=== PATIENT | female | born 1985 | race Two or more races ===

== ENCOUNTER 2021-04-08 16:18 | Inpatient (IN) | payer MEDICARE, BC, MEDICAID, SELFPAY ==
--- NOTE | 2021-04-08 | ECG_ITS ---
Test Reason : ANTIPSYCHOTIC MED Blood Pressure : / mmHG Vent. Rate : 059 BPM Atrial Rate : 059 BPM P-R Int : 154 ms QRS Dur : 088 ms QT Int : 398 ms P-R-T Axes : 049 072 049 degrees QTc Int : 394 ms Sinus bradycardia Otherwise normal ECG No previous ECGs available Referred By: Hernán Marcelo Electronically Signed By:HERMILO LARSEN
[2021-04-08 16:26] VITALS: BP 137/93; PULSE 85; RESP 17; TEMP 36.7; O2SAT 97; BMI 32.3
--- NOTE | 2021-04-08 16:58 | ED_ITS ---
HPI - Psych General Chief Complaint: Psychiatric Symptoms <Hernán Marcelo MD - Last Filed: 04/08/21 23:24> Stated Complaint: depression, anxiety <Hernán Marcelo MD - Last Filed: 04/08/21 23:24> Time Seen by Provider: 04/08/21 16:54 <Hernán Marcelo MD - Last Filed: 04/08/21 23:24> Source: patient <Hernán Marcelo MD - Last Filed: 04/08/21 23:24> Mode of arrival: ambulatory <Hernán Marcelo MD - Last Filed: 04/08/21 23:24> Limitations: no limitations <Hernán Marcelo MD - Last Filed: 04/08/21 23:24> History of Present Illness HPI Narrative: History of depression anxiety on medications seen psychiatrist therapist feeling overwhelmed last night was at [facility] plan to have partial intake but is not available for next 3 weeks came from work as unable to focus at work and stressed out looking for some help. Patient denied any suicidal ideation feel very anxious and depressed without any event happened at home <Hernán Mareclo MD - Last Filed: 04/08/21 23:24> Related Data Home Medications: Home Medications Medication Instructions Recorded Confirmed aripiprazole 5 mg tablet 5 mg PO DAILY 04/08/21 04/08/21 bupropion HCl 300 mg 24 hr tablet, 300 mg PO DAILY 04/08/21 04/08/21 extended release clonazepam 1 mg tablet 1 mg PO TID 04/08/21 04/08/21 duloxetine 60 mg capsule,delayed 120 mg PO DAILY 04/08/21 04/08/21 release propranolol 10 mg tablet 10 mg PO TID 04/08/21 04/08/21 <Hernán Marcelo MD - Last Filed: 04/08/21 23:24> Allergies/Adverse Reactions: Allergies Allergy/AdvReac Type Severity Reaction Status Date / Time amoxicillin [AMOXICILLIN] Allergy Unknown HIVES Verified 04/08/21 16:26 <Hernán Marcelo MD - Last Filed: 04/08/21 23:24> Review of Systems Review of Systems: Constitutional : No Fever, No Chills ENT/Mouth : No Ear Pain, No Nasal Congestion, No sore throat Eyes: No Eye Pain, No Swelling, No Redness Cardiovascular : No Chest Pain, No SOB Respiratory : No Cough, No Sputum, No Dyspnea Gastrointestinal : No Nausea, No Vomiting, No Diarrhea, No Hematochezia, No Melena Genitourinary : No Dysuria, No Urinary Frequency, No Hematuria Musculoskeletal : No Myalgias Skin : No Skin Lesions, No rash Neuro : No Weakness, No Numbness, No Paresthesias, No Dizziness, No Headache Psych : positive Anxiety, positive Depression, negative SI/HI Heme/Lymph: No Lymphadenopathy Endocrine : No Polyuria, No Polydipsia <Hernán Marcelo MD - Last Filed: 04/08/21 23:24> [facility] Past Medical History Medical History: Medical History Anxiety Depression <Hernán Marcelo MD - Last Filed: 04/08/21 23:24> Surgical History: Surgical History S/P bilateral breast reduction <Hernán Marcelo MD - Last Filed: 04/08/21 23:24> Social History Social History: Social History Advance Directives: No Advance Directives Information Provided: Yes Healthcare Proxy: No Guardian: No Patient : No <Hernán Marcelo MD - Last Filed: 04/08/21 23:24> Physical Exam Vital Signs: Vital Signs: Last Vital Signs Temp 98.0 F 04/08/21 16:26 Pulse 85 04/08/21 16:26 Resp 17 04/08/21 16:26 BP 137/93 H 04/08/21 16:26 Pulse Ox 97 04/08/21 16:26 Body Mass Index 32.3 <Hernán Marcelo MD - Last Filed: 04/08/21 23:24> Vital Signs: Last Vital Signs Temp 98.0 F 04/08/21 16:26 Pulse 85 04/08/21 16:26 Resp 17 04/08/21 16:26 BP 137/93 H 04/08/21 16:26 Pulse Ox 97 04/08/21 16:26 Body Mass Index 32.3 <Suraj Mahmood MD - Last Filed: 04/08/21 22:08> Appearance: Alert. Oriented X3. No acute distress. Eyes: PERRLA, No Nystagmus ENT: Pharynx normal. Oral Mucosa moist Neck: Normal inspection. Neck supple. CVS: Normal heart rate and rhythm. Pulses normal. Respiratory: No respiratory distress. Equal air entry bilateral, no wheezing/rales/rhonchi Abdomen: Soft and nontender. Bowel sounds are present, no mass palpable, no CVA tenderness Skin: Skin warm and dry. Normal skin color. Normal skin turgor. Extremities: No lower extremity edema. No calf tenderness pdych: Depressed mood slightly anxious no hallucination or delusion judgment fair Neuro: Oriented X 3. No motor deficit. No sensory deficit.No cerebellar signs , cranial nerves II-XII intact <Hernán Marcelo MD - Last Filed: 04/08/21 23:24> MDM - Psych MDM Narrative Medical decision making narrative: Patient seen by therapist will admit patient to for depression <Hernán Marcelo MD - Last Filed: 04/08/21 23:24> Lab Data Attestation: I reviewed the patient's lab results. <Hernán Marcelo MD - Last Filed: 04/08/21 23:24> Labs: Lab Results 04/08/21 04/08/21 04/08/21 Range/Units 17:38 17:38 17:38 Urine Color YELLOW Urine Appearance CLEAR Urine pH 6.5 (5.0-8.0) Ur Specific [place] 1.025 (1.005-1.025) Urine Protein TRACE (NEG-TRACE) MG/DL Urine Glucose (UA) NEG (NEG) MG/DL Urine Ketones 5 (NEG) MG/DL Urine Blood NEG (NEG) Urine Nitrite NEG (NEG) Ur Leukocyte Esterase NEG (NEG) Urine Test NEGATIVE (NEGATIVE) Urine Opiates Screen Not Detected (Not Detect) Urine Fentanyl Screen Not Detected (Not Detect) Ur Barbiturates Screen Not Detected (Not Detect) Ur Phencyclidine Scrn Not Detected (Not Detect) Ur Amphetamines Screen Not Detected (Not Detect) U Benzodiazepines Scrn POSITIVE H (Not Detect) Urine Cocaine Screen Not Detected (Not Detect) U Marijuana (THC) Screen POSITIVE H (Not Detect) COVID-19 (NENITA) (Negative) COVID-19 [facility] Com 04/08/21 Range/Units 17:58 Urine Color Urine Appearance Urine pH (5.0-8.0) Ur Specific [place] (1.005-1.025) Urine Protein (NEG-TRACE) MG/DL Urine Glucose (UA) (NEG) MG/DL Urine Ketones (NEG) MG/DL Urine Blood (NEG) Urine Nitrite (NEG) Ur Leukocyte Esterase (NEG) Urine Test (NEGATIVE) Urine Opiates Screen (Not Detect) Urine Fentanyl Screen (Not Detect) Ur Barbiturates Screen (Not Detect) Ur Phencyclidine Scrn (Not Detect) Ur Amphetamines Screen (Not Detect) U Benzodiazepines Scrn (Not Detect) Urine Cocaine Screen (Not Detect) U Marijuana (THC) Screen (Not Detect) COVID-19 (NENITA) Negative (Negative) COVID-19 [employer] See Note <Hernán Marcelo MD - Last Filed: 04/08/21 23:24> Lab Results 04/08/21 04/08/21 04/08/21 Range/Units 17:38 17:38 17:38 Urine Color YELLOW Urine Appearance CLEAR Urine pH 6.5 (5.0-8.0) Ur Specific [place] 1.025 (1.005-1.025) Urine Protein TRACE (NEG-TRACE) MG/DL Urine Glucose (UA) NEG (NEG) MG/DL Urine Ketones 5 (NEG) MG/DL Urine Blood NEG (NEG) Urine Nitrite NEG (NEG) Ur Leukocyte Esterase NEG (NEG) Urine Test NEGATIVE (NEGATIVE) Urine Opiates Screen Not Detected (Not Detect) Urine Fentanyl Screen Not Detected (Not Detect) Ur Barbiturates Screen Not Detected (Not Detect) Ur Phencyclidine Scrn Not Detected (Not Detect) Ur Amphetamines Screen Not Detected (Not Detect) U Benzodiazepines Scrn POSITIVE H (Not Detect) Urine Cocaine Screen Not Detected (Not Detect) U Marijuana (THC) Screen POSITIVE H (Not Detect) COVID-19 (NENITA) (Negative) COVID-19 [employer] 04/08/21 Range/Units 17:58 Urine Color Urine Appearance Urine pH (5.0-8.0) Ur Specific [place] (1.005-1.025) Urine Protein (NEG-TRACE) MG/DL Urine Glucose (UA) (NEG) MG/DL Urine Ketones (NEG) MG/DL Urine Blood (NEG) Urine Nitrite (NEG) Ur Leukocyte Esterase (NEG) Urine Test (NEGATIVE) Urine Opiates Screen (Not Detect) Urine Fentanyl Screen (Not Detect) Ur Barbiturates Screen (Not Detect) Ur Phencyclidine Scrn (Not Detect) Ur Amphetamines Screen (Not Detect) U Benzodiazepines Scrn (Not Detect) Urine Cocaine Screen (Not Detect) U Marijuana (THC) Screen (Not Detect) COVID-19 (NENITA) Negative (Negative) COVID-19 Clin Com See Note <Suraj Mahmood MD - Last Filed: 04/08/21 22:08> Discharge Plan Discharge Clinical Impression: Major depressive disorder, recurrent episode, unspecified Qualifiers: Major depression episode severity: unspecified Qualified Code(s): F33.9 - Major depressive disorder, recurrent, unspecified <Hernán Marcelo MD - Last Filed: 04/08/21 23:24> Patient Disposition: Admitted As Inpatient <Hernán Marcelo MD - Last Filed: 04/08/21 23:24> Interventions: Admission Worksheet (ED) Last Done: 04/08/21 22:47 <Hernán Marcelo MD - Last Filed: 04/08/21 23:24> Discharge Date/Time: 04/08/21 22:48 <Hernán Marcelo MD - Last Filed: 04/08/21 23:24>
--- NOTE | 2021-04-08 17:06 | PC.NURSE ---
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 boss at work pulled her aside and hinted to seek treatment.contracts for safety, denies hallucinations. smokes cigarettes but declines replacement at present.
[2021-04-08 18:00] LABS: Amphetamine Screen Urine Not Detected (Not Detect); Barbiturates, Urine Not Detected (Not Detect); Benzodiazepines Screen Urine POSITIVE (Not Detect); Cannabinoid Screen Urine POSITIVE (Not Detect); Cocaine Screen Urine Not Detected (Not Detect); Fentanyl, urine Not Detected (Not Detect); Opiate Screen Urine Not Detected (Not Detect); Phencyclidine Screen Urine Not Detected (Not Detect)
[2021-04-08 18:03] LABS: Glucose Urine UA NEG (NEG); Leukocyte Esterase Urine NEG (NEG); Nitrite Urine NEG (NEG); PH 6.5 (5.0-8.0); Specific Gravity - Urine 1.025 (1.005-1.025); Urine Blood NEG (NEG); Urine Ketones 5 MG/DL (NEG); Urine Protein TRACE MG/DL (NEG-TRACE)
[2021-04-08 18:12] LABS: UPreg QC Valid YES; Urine Pregnancy NEGATIVE (NEGATIVE)
[2021-04-08 18:17] LABS: Appearance Urine CLEAR; Color Urine YELLOW
[2021-04-08 18:45] LABS: COVID-19 Test Negative (Negative)
[2021-04-09] VITALS (7 sets, daily range): BP systolic 116–133; BP diastolic 67–79; PULSE 65–85; RESP 18; TEMP 36.4–36.6; O2SAT 98
[2021-04-09] MEDS: Propranolol HCL 10 MG TABLET PO ×4 (00:18→20:28)
[2021-04-09] MEDS: clonazePAM 1 MG TABLET PO ×4 (00:18→20:28)
[2021-04-09] MEDS: traZODone HCL 50 MG TABLET PO (00:21)
--- NOTE | 2021-04-09 02:59 | PC.ADMIT ---
this is the first M3 admission for this 35 year old female. legal:CV. DX: MDD, anxiety d/o. patient was referred to unit by the CARE team. nurse to nurse, collateral information obtained prior to admission. patient is a working RN. Patient has a PCP as well as established out patient providers for behavioral health. BAKER + for benzo (pt has current prescription) and marijuana-pt reports daily use. Patient reports that her anxiety is causing difficulties with her ability to function as a nurse. No current si or self harm thoughts but becomes tearful easily when discussing symptoms ; poor appetite, poor functioning at work, increase in isolation. Identifies that she has a good support system but then adds ''I feel so alone'' Presents as hopeless ''I feel like it will never get any better'' no medical issues. oriented to unit. safety tool completed. treatment plan initiated.
[2021-04-09] MEDS: DULoxetine HCl 60 MG CAPSULE.DR 120 MG PO (08:43)
[2021-04-09] MEDS: ARIPiprazole 5 MG TABLET PO (08:44)
[2021-04-09] MEDS: buPROPion HCl XL 300 MG TAB.ER.24H PO (08:44)
[2021-04-09] MEDS: QUEtiapine Fumarate 25 MG TABLET PO ×3 (12:14→20:28)
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
--- NOTE | 2021-04-09 16:15 | MHC.CLN ---
NUTRITION CONSULT PATIENT REPORTED ABOUT 20# WEIGHT LOSS, UNSURE OF TIME FRAME. WEIGHT LOSS DUE TO DECREASED APPETITE AND INTAKE DUE TO ANXIETY. REPORTED THAT HAS GAINED BACK THAT WEIGHT.
--- NOTE | 2021-04-10 07:47 | HO.PSYCHPN ---
Subjective Subjective Date of Service: 04/13/21 Reason For Visit: Depression Subjective Notes: Conditional Voluntary Interim History: Pt reports feeling less depressed, less anxious. Her mother has come to visit her every day and this has been helpful. She reports seroquel helpful with anxiety. She reports improved sleep at times tearful but denies suicidal or homicidal ideation. NO VH/AH. She has been visible in the unit. Medication Compliance: Yes Review of Systems Review of Systems Constitutional : No Fever, No Chills ENT/Mouth : No Ear Pain, No Nasal Congestion, No sore throat Eyes: No Eye Pain, No Swelling, No Redness Cardiovascular : No Chest Pain, No SOB Respiratory : No Cough, No Sputum, No Dyspnea Gastrointestinal : No Nausea, No Vomiting, No Diarrhea, No Hematochezia, No Melena Genitourinary : No Dysuria, No Urinary Frequency, No Hematuria Musculoskeletal : No Myalgias Skin : No Skin Lesions, No rash Neuro : No Weakness, No Numbness, No Paresthesias, No Dizziness, No Headache Psych : positive Anxiety, positive Depression, negative SI/HI Heme/Lymph: No Lymphadenopathy Endocrine : No Polyuria, No Polydipsia Mental Status Exam Mental Status Exam Narrative: dressed in hospital attire. appropriately groomed. no PMA/PMR. cooperative with interview. speech soft, nml rate, amount, latency. decreased prosody. thoughts linear and logical. affect brighter. mood better denies SI/HI/AVH. Diagnostics Vital Signs (24Hr): Vital Signs - 24 hr 04/12/21 08:36 04/12/21 08:44 04/12/21 14:28 Temperature 97.8 F Pulse Rate 72 72 82 Blood Pressure 122/68 122/68 142/68 H Pulse Oximetry 100 04/12/21 16:44 04/12/21 22:25 Temperature 98.1 F Pulse Rate 84 81 Blood Pressure 122/76 132/88 Pulse Oximetry Body Mass Index 32.3 Medications Medications Current Medications Generic Name Dose Route Start Last Admin Trade Name Freq PRN Reason Stop Dose Admin Acetaminophen 650 mg 04/09/21 00:03 Acetaminophen 325 Mg Tablet PO Q6H PRN Headache/Pain Mild Scale (1-3) Al Hydroxide/Mg Hydroxide 30 ml 04/09/21 00:03 Magnesium Hydrox/Alum Hydrox 30 Ml Oral.Susp PO Q6H PRN Heartburn/Nausea Bupropion HCl 300 mg 04/09/21 09:00 04/12/21 08:44 Bupropion Hcl Xl 300 Mg Tab.Er.24h PO 300 mg DAILY NEERU Administration Clonazepam 1 mg 04/09/21 00:03 04/12/21 22:25 Clonazepam 1 Mg Tablet PO 1 mg TID NEERU Administration Duloxetine HCl 120 mg 04/09/21 09:00 04/12/21 08:45 Duloxetine Hcl 60 Mg Capsule.Dr PO 120 mg DAILY NEERU Administration Hydroxyzine HCl 25 mg 04/09/21 00:03 Hydroxyzine Hcl 25 Mg Tablet PO BEDTIME PRN Anxiety Magnesium Hydroxide 30 ml 04/09/21 00:03 Milk Of Magnesia 30 Ml Oral.Susp PO DAILY PRN Constipation Nicotine Polacrilex 2 mg 04/09/21 09:55 Nicotine Polacrilex 2 Mg Gum BUCCAL Q1H PRN Nicotine Cravings Propranolol HCl 10 mg 04/09/21 00:03 04/12/21 22:25 Propranolol Hcl 10 Mg Tablet PO 10 mg TID NEERU Administration Protocol Quetiapine Fumarate 25 mg 04/09/21 13:00 04/12/21 22:25 Quetiapine Fumarate 25 Mg Tablet PO 25 mg QID NEERU Administration Quetiapine Fumarate 50 mg 04/09/21 11:55 Quetiapine Fumarate 50 Mg Tablet PO Q4H PRN anxiety Trazodone HCl 50 mg 04/09/21 00:03 04/09/21 00:21 Trazodone Hcl 50 Mg Tablet PO 50 mg BEDTIME PRN Administration Insomnia Allergies Allergies Allergy/AdvReac Type Severity Reaction Status Date / Time amoxicillin [AMOXICILLIN] Allergy Unknown HIVES Verified 04/08/21 16:26 Assessment & Plan Assessment & Plan (1) Anxiety disorder: Status: Acute Code(s): F41.9 - Anxiety disorder, unspecified (2) Major depressive disorder, recurrent episode, unspecified: Qualifiers: Major depression episode severity: unspecified Qualified Code(s): F33.9 - Major depressive disorder, recurrent, unspecified Status: Acute Code(s): F33.9 - Major depressive disorder, recurrent, unspecified Assessment and Plan: continue klonopin 1 TID, duloxetine 120 daily, propranolol 10 TID, bupropion XL 300 daily. DC abilify 5 mg daily in favor of seroquel 25 QID with 50 PRN. reassess and titrate seroquel tomorrow. Greater than 50% of the session was spent on counseling and/or coordination of care Reason for contiued inpatient stay Substantial Risk for: harm to self
[2021-04-10 09:12] VITALS: BP 115/65; PULSE 81; RESP 16; TEMP 36.6; O2SAT 98
[2021-04-10 09:15] VITALS: BP 115/65; PULSE 81
[2021-04-10] MEDS: buPROPion HCl XL 300 MG TAB.ER.24H PO (09:15)
[2021-04-10] MEDS: clonazePAM 1 MG TABLET PO ×3 (09:15→20:12)
[2021-04-10] MEDS: DULoxetine HCl 60 MG CAPSULE.DR 120 MG PO (09:15)
[2021-04-10] MEDS: QUEtiapine Fumarate 25 MG TABLET PO ×4 (09:15→20:12)
[2021-04-10] MEDS: Propranolol HCL 10 MG TABLET PO ×3 (09:15→20:12)
[2021-04-10 14:34] VITALS: BP 136/65; PULSE 81
[2021-04-10 18:00] VITALS: BP 115/60; PULSE 78; RESP 18; TEMP 36.3; O2SAT 98
[2021-04-10 20:12] VITALS: BP 115/60; PULSE 78
[2021-04-11 09:44] VITALS: BP 131/68; PULSE 80
[2021-04-11] MEDS: Propranolol HCL 10 MG TABLET PO ×3 (09:44→22:19)
[2021-04-11] MEDS: clonazePAM 1 MG TABLET PO ×3 (09:44→22:19)
[2021-04-11] MEDS: buPROPion HCl XL 300 MG TAB.ER.24H PO (09:44)
[2021-04-11] MEDS: DULoxetine HCl 60 MG CAPSULE.DR 120 MG PO (09:45)
[2021-04-11] MEDS: QUEtiapine Fumarate 25 MG TABLET PO ×4 (09:45→22:19)
[2021-04-11 09:53] VITALS: BP 131/68; PULSE 80; RESP 16; TEMP 36.3; O2SAT 98
[2021-04-11 13:42] VITALS: BP 126/67; PULSE 69
[2021-04-11 22:08] VITALS: BP 133/77; PULSE 67; RESP 18; TEMP 36.5; O2SAT 100
[2021-04-12 08:36] VITALS: BP 122/68; PULSE 72; TEMP 36.6; O2SAT 100
[2021-04-12 08:44] VITALS: BP 122/68; PULSE 72
[2021-04-12] MEDS: buPROPion HCl XL 300 MG TAB.ER.24H PO (08:44)
[2021-04-12] MEDS: Propranolol HCL 10 MG TABLET PO ×3 (08:44→22:25)
[2021-04-12] MEDS: clonazePAM 1 MG TABLET PO ×3 (08:44→22:25)
[2021-04-12] MEDS: QUEtiapine Fumarate 25 MG TABLET PO ×4 (08:45→22:25)
[2021-04-12] MEDS: DULoxetine HCl 60 MG CAPSULE.DR 120 MG PO (08:45)
[2021-04-12 14:28] VITALS: BP 142/68; PULSE 82
[2021-04-12 16:44] VITALS: BP 122/76; PULSE 84; TEMP 36.7
[2021-04-12 22:25] VITALS: BP 132/88; PULSE 81
[2021-04-13 08:00] VITALS: BP 129/60; PULSE 70; RESP 16; TEMP 36.2; O2SAT 99
[2021-04-13 08:37] VITALS: BP 129/60; PULSE 70
[2021-04-13] MEDS: QUEtiapine Fumarate 25 MG TABLET PO ×4 (08:37→22:17)
[2021-04-13] MEDS: DULoxetine HCl 60 MG CAPSULE.DR 120 MG PO (08:37)
[2021-04-13] MEDS: Propranolol HCL 10 MG TABLET PO ×3 (08:37→22:14)
[2021-04-13] MEDS: buPROPion HCl XL 300 MG TAB.ER.24H PO (08:38)
[2021-04-13] MEDS: clonazePAM 1 MG TABLET PO ×3 (08:38→22:14)
--- NOTE | 2021-04-13 11:50 | HO.PSYCHPN ---
Subjective Subjective Date of Service: 04/13/21 Reason For Visit: Depression Interim History: pt reports she is feeling well on her current regimen. depression and anxiety are not overwhelming. appears comfortable and relaxed, if somber. educates pt that medication will not be the solution to her problem, but that behavioral therapy is indicated. she was informed to be in touch with [facility] residency program if needed to find someone trained in this skill. she is agreeable to discharge tomorrow. per staff, attended 3/3 groups yesterday. reading, watching TV. bright, pleasant, interactive. 10/14 depression. no SI/HI/AVH. a little bit sad. slept after midnight. Mental Status Exam Mental Status Exam Narrative: dressed in street clothes. appropriately groomed. no PMA/PMR. cooperative with interview. speech soft, nml rate, amount, latency. decreased prosody. thoughts linear and logical. affect brighter. no expressed SI/HI/AVH. Diagnostics Vital Signs (24Hr): Vital Signs - 24 hr 04/12/21 14:28 04/12/21 16:44 04/12/21 22:25 Temperature 98.1 F Pulse Rate 82 84 81 Blood Pressure 142/68 H 122/76 132/88 04/13/21 08:37 Temperature Pulse Rate 70 Blood Pressure 129/60 Body Mass Index 32.3 Medications Medications Current Medications Generic Name Dose Route Start Last Admin Trade Name Freq PRN Reason Stop Dose Admin Acetaminophen 650 mg 04/09/21 00:03 Acetaminophen 325 Mg Tablet PO Q6H PRN Headache/Pain Mild Scale (1-3) Al Hydroxide/Mg Hydroxide 30 ml 04/09/21 00:03 Magnesium Hydrox/Alum Hydrox 30 Ml Oral.Susp PO Q6H PRN Heartburn/Nausea Bupropion HCl 300 mg 04/09/21 09:00 04/13/21 08:38 Bupropion Hcl Xl 300 Mg Tab.Er.24h PO 300 mg DAILY NEERU Administration Clonazepam 1 mg 04/09/21 00:03 04/13/21 08:38 Clonazepam 1 Mg Tablet PO 1 mg TID NEERU Administration Duloxetine HCl 120 mg 04/09/21 09:00 04/13/21 08:37 Duloxetine Hcl 60 Mg Capsule.Dr PO 120 mg DAILY NEERU Administration Hydroxyzine HCl 25 mg 04/09/21 00:03 Hydroxyzine Hcl 25 Mg Tablet PO BEDTIME PRN Anxiety Magnesium Hydroxide 30 ml 04/09/21 00:03 Milk Of Magnesia 30 Ml Oral.Susp PO DAILY PRN Constipation Nicotine Polacrilex 2 mg 04/09/21 09:55 Nicotine Polacrilex 2 Mg Gum BUCCAL Q1H PRN Nicotine Cravings Propranolol HCl 10 mg 04/09/21 00:03 04/13/21 08:37 Propranolol Hcl 10 Mg Tablet PO 10 mg TID NEERU Administration Protocol Quetiapine Fumarate 25 mg 04/09/21 13:00 04/13/21 08:37 Quetiapine Fumarate 25 Mg Tablet PO 25 mg QID NEERU Administration Quetiapine Fumarate 50 mg 04/09/21 11:55 Quetiapine Fumarate 50 Mg Tablet PO Q4H PRN anxiety Trazodone HCl 50 mg 04/09/21 00:03 04/09/21 00:21 Trazodone Hcl 50 Mg Tablet PO 50 mg BEDTIME PRN Administration Insomnia Allergies Allergies Allergy/AdvReac Type Severity Reaction Status Date / Time amoxicillin [AMOXICILLIN] Allergy Unknown HIVES Verified 04/08/21 16:26 Assessment & Plan Assessment & Plan (1) Anxiety disorder: Status: Acute Code(s): F41.9 - Anxiety disorder, unspecified (2) Major depressive disorder, recurrent episode, unspecified: Qualifiers: Major depression episode severity: unspecified Qualified Code(s): F33.9 - Major depressive disorder, recurrent, unspecified Status: Acute Code(s): F33.9 - Major depressive disorder, recurrent, unspecified Assessment and Plan: continue klonopin 1 TID, duloxetine 120 daily, propranolol 10 TID, bupropion XL 300 daily, seroquel 25 QID with 50 PRN. discharge to outpt care tomorrow. Greater than 50% of the session was spent on counseling and/or coordination of care Reason for contiued inpatient stay Substantial Risk for: rapid decompensation
[2021-04-13 14:33] VITALS: BP 144/81; PULSE 95
[2021-04-13 18:00] VITALS: BP 132/83; PULSE 89; TEMP 36.7; O2SAT 96
[2021-04-13 22:14] VITALS: BP 123/76; PULSE 97
[2021-04-14 09:10] VITALS: BP 133/73
[2021-04-14] MEDS: DULoxetine HCl 60 MG CAPSULE.DR 120 MG PO (09:10)
[2021-04-14] MEDS: buPROPion HCl XL 300 MG TAB.ER.24H PO (09:10)
[2021-04-14] MEDS: Propranolol HCL 10 MG TABLET PO (09:10)
[2021-04-14] MEDS: QUEtiapine Fumarate 25 MG TABLET PO (09:11)
[2021-04-14 10:05] VITALS: BP 114/61; PULSE 57
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
== END 2021-04-14 12:53 | disposition home or self-care (01) | DRG 751 ==
LOC: HO.ED 22:05 → HO.PADLT16 22:32
PROVIDERS: Admitting Provider Psychiatry & Neurology Psychiatry; Emergency Provider Internal Medicine; PCP Internal Medicine; Visit Provider Psychiatry & Neurology Psychiatry
DX: F33.9 Major depressive disorder, recurrent, unspecified (principal); F41.9 Anxiety disorder, unspecified; F17.210 Nicotine dependence, cigarettes, uncomplicated; Z71.6 Tobacco abuse counseling; Z20.822 Contact with and (suspected) exposure to COVID-19; Z88.0 Allergy status to penicillin; Z79.899 Other long term (current) drug therapy
CPT/HCPCS: 36415; 80307; 81003; 81025; 87635; 93005; 99285

== ENCOUNTER 2022-09-16 21:32 | Emergency (ER) | payer MEDICARE, MEDICAID, SELFPAY ==
[2022-09-16 22:30] VITALS: BP 171/96; PULSE 87; RESP 20; TEMP 36.5; O2SAT 99; BMI 30.4
[2022-09-17 06:17] VITALS: BP 121/63; PULSE 65; RESP 16; TEMP 36.8; O2SAT 97
--- NOTE | 2022-09-17 06:37 | ECG_ITS ---
Test Reason : ANXIETY Blood Pressure : / mmHG Vent. Rate : 078 BPM Atrial Rate : 078 BPM P-R Int : 160 ms QRS Dur : 088 ms QT Int : 404 ms P-R-T Axes : 063 067 049 degrees QTc Int : 460 ms Normal sinus rhythm Normal ECG When compared with ECG of 08-APR-2021 22:11, QT has lengthened Referred By: Yani Euceda Electronically Signed By:LESLIE DONG MD
[2022-09-17 07:13] LABS: UPreg QC Valid YES; Urine Pregnancy NEGATIVE (NEGATIVE)
[2022-09-17 07:14] LABS: Appearance Urine Cloudy; Color Urine Dark Yellow; Glucose Urine UA Negative (Negative); Leukocyte Esterase Urine Small (1+) (Negative); Nitrite Urine Negative (Negative); PH 5.5 (5.0-9.0); Specific Gravity - Urine >= 1.030 (1.005-1.025); UMIC TRIGGER UACC YES; Urine Blood Negative (Negative); Urine Ketones Negative (Negative); Urine Protein 30 (1+) mg/dL (Neg-Trace)
[2022-09-17 07:47] LABS: Bacteria Urine 4+ (None Seen); Hyaline Casts Urine 0-2 /LPF (0-2); Squamous Epithelial Cell Urine >20 /HPF (0-2); UACC Culture Trigger YES; WBC Urine 0-5 /HPF (0-5)
--- NOTE | 2022-09-17 08:19 | PC.NURSE ---
Patient resting comfortably with mother at bedside anxiety mostly resolved continues to complain of vaginal pain. Used prescribed lidocaine with marginal effect. AOx 4 neuros intact. SAMUEL with purpose no respiratory distress noted. Will CTM
--- NOTE | 2022-09-17 08:23 | ED.GENADULT ---
HPI - General Adult General Chief complaint: Anxiety Stated complaint: Anxiety attack? Time Seen by Provider: 09/17/22 06:37 Source: patient and family (Mother) Mode of arrival: ambulatory History of Present Illness HPI narrative: 37-year-old female who presents with increasing clitoral sensitivity and pain that is throbbing in nature without reported trauma since Monday after she was started on Bactrim for a UTI. Patient is currently on Viibryd for anxiety and denies any recent dosing or frequency changes, she does states that she was informed on Monday that in fact she does not have a urinary tract infection and the Bactrim was stopped and then she was started on Flagyl. Patient states that since 2 days ago the pain has become ?unbearable? preventing her from sleeping at night and she presents here in the emergency room with acute onset of an anxiety attack last night. She has recently been tapered off her benzodiazepine as well. Related Data Home Medications Medication Instructions Recorded Confirmed bupropion HCl 300 mg 24 hr tablet, 300 mg PO DAILY 04/08/21 04/08/21 extended release clonazepam 1 mg tablet 1 mg PO TID 04/08/21 04/08/21 duloxetine 60 mg capsule,delayed 120 mg PO DAILY 04/08/21 04/08/21 release propranolol 10 mg tablet 10 mg PO TID 04/08/21 04/08/21 Previous Rx's Medication Instructions Recorded quetiapine 25 mg tablet 25 mg PO QID 30 days #120 tabs 04/14/21 clotrimazole-betamethasone 1 1 appl topical BID 5 days #15 grams 09/17/22 %-0.05 % topical cream hydroxyzine HCl 10 mg tablet 10 mg PO TID PRN anxiety #10 tabs 09/17/22 terconazole 0.8 % vaginal cream 1 appful vaginal BEDTIME 3 days 09/17/22 #20 grams Allergies Allergy/AdvReac Type Severity Reaction Status Date / Time amoxicillin [AMOXICILLIN] Allergy Unknown HIVES Verified 09/16/22 22:36 Review of Systems Review of Systems: Pertinent positives and negatives as stated in HPI [facility] Past Medical History Source: nursing notes reviewed Medical History Anxiety Depression Surgical History S/P bilateral breast reduction Social History Social History Household Members: Other Housing: Apartment Do you presently have visiting nurse or other home services: No Alcohol intake: current Alcohol intake frequency: holidays/special occasions only Alcohol type: wine Patient Tobacco Use Status: Current everyday Tobacco user Tobacco use type: Cigarette Smoked in Last 30 Days: No e-Cigarette/Vaping Use: Never Used Second Hand Smoke Exposure: Yes Use of substances other than those prescribed or required for medical reasons: Yes Substance Use Type: Marijuana Substance Use Frequency: Weekly Advance Directives: No Advance Directives Information Provided: Yes service: No Sexual orientation: Straight/Heterosexual Physical Exam ED Vital Signs: Vital Signs - 24 hr 09/16/22 22:30 09/17/22 06:17 Temperature 97.7 F 98.3 F Pulse Rate 87 65 Respiratory Rate 20 16 Blood Pressure 171/96 H 121/63 Pulse Oximetry 99 97 Oxygen Delivery Method Room Air Room Air BMI result Body Mass Index 30.4 VITAL SIGNS: Reviewed. GENERAL: Well developed, well nourished, in no acute distress. HEAD: Normocephalic/atraumatic EYES: PERRLA, EOMI LUNGS: Normal breath sounds. No adventitious sounds or accessory muscle use. SpO2<97> CARDIOVASCULAR: Regular rate and rhythm without noted murmurs ABDOMEN: Soft, non-tender, non-distended with bowel sounds. : [Information Systems Security Manager-Caroylnn] normal external genitalia without lesions/vesicles/discharge/erythema, clitoris itself appears to be very red and inflamed without noted lesions, no vaginal discharge noted NEUROLOGIC: Alert and oriented x 4. Medications Administered Discontinued Medications Generic Name Dose Route Start Last Admin Trade Name [place] PRN Reason Stop Dose Admin Lidocaine HCl 10 ml 09/17/22 08:52 09/17/22 09:04 Lidocaine Hcl 2 % Urojet 10 Ml Jel.Pf.Lisha TOPICAL 09/17/22 08:53 10 ml ONCE ONE Administration Medical Decision Making Medical Decision Making MDM Narrative: 37-year-old female with significant clinical pain, I extensively researched interactions between Bactrim/Flagyl and her maintenance medication of Viibryd and there does not seem to be a significant interaction that would lead to uncharacteristic increase amounts of Viibryd which in theory could lead to sexual dysfunction such as this. I reviewed all investigations. I discussed our car sales consultant's recommendations with the patient at bedside after she had been provided with 2% lidocaine and she does report that she has had some improvement with her symptoms. In addition, patient will be discharged with a prescription for hydroxyzine for initial step and feelings of anxiety. She is otherwise discharged home in stable condition. Differential Diagnosis Differential Diagnoses: The differential diagnosis associated with the presentation includes Please see the discussion above Consult Healthcare Provider Management of the patient was discussed with: Credit Cashier [id number]: I discussed the case with Gynecology, Dr. Ananya Darden, who recommends Terazol 0.8% Q HS for 3 days and then Lotrisone b.i.d. for 5 days external use to clitoral area. Lab Data MDM Lab Attestation statement: I reviewed the patient's lab results. Please see the discussion above Labs: Lab Results 09/17/22 09/17/22 Range/Units 06:57 06:57 Urine Color Dark Yellow Urine Appearance Cloudy Urine pH 5.5 (5.0-9.0) Ur Specific [place] >= 1.030 H (1.005-1.025) Urine Protein 30 (1+) H (Neg-Trace) mg/dL Urine Glucose (UA) Negative (Negative) mg/dL Urine Ketones Negative (Negative) mg/dL Urine Blood Negative (Negative) Urine Nitrite Negative (Negative) Ur Leukocyte Esterase Small (1+) H (Negative) Urine RBC 3-5 H (0-2) /HPF Urine WBC 0-5 (0-5) /HPF Ur Squamous Epith Cells >20 (0-2) /HPF Urine Bacteria 4+ (None Seen) Hyaline Casts 0-2 (0-2) /LPF Urine Test NEGATIVE (NEGATIVE) Independent Interpretation I performed an independent interpretation of an: EKG Interpretation: Normal sinus rhythm, HR-78, no STEMI, CA/QRS/QTC is within normal limits. Critical Care Time Critical Care Time Critical Care Time: Yes Total Critical Care Time: 30 Attestation: I personally attest to this time spent taking care of the patient. Discharge Plan Discharge Clinical Impression: Acute anxiety, Clitoral irritation Patient Disposition: Home, Self-Care Instructions: Anxiety (ED) Additional Instructions: 1. Resume all home medications as prescribed. 2. Please take the 2 new prescriptions as recommended. 3. Please follow-up with your candy cooker helper on Monday morning. Return to the ER for any worsening symptoms. Prescriptions: New terconazole 0.8 % cream 1 appful vaginal BEDTIME 3 Days Qty: 20 0RF clotrimazole-betamethasone 1-0.05 % cream 1 appl topical BID 5 Days Qty: 15 0RF Rx Instructions: Apply to clitoral area hydroxyzine HCl 10 mg tablet 10 mg PO TID PRN (Reason: anxiety) Qty: 10 0RF No Action clonazepam 1 mg tablet 1 mg PO TID propranolol 10 mg tablet 10 mg PO TID bupropion HCl 300 mg tablet extended release 24 hr 300 mg PO DAILY duloxetine 60 mg capsule,delayed release(DR/EC) 120 mg PO DAILY quetiapine 25 mg Tablet 25 mg PO QID 30 Days Qty: 120 0RF Referrals: Elvis Lopez [Primary Care Provider] -
[2022-09-17] MEDS: Lidocaine HCl 2 % Urojet 10 ML JEL.PF.APP TOPICAL (09:04)
--- NOTE | 2022-09-17 10:57 | PM.GYNCN ---
VICE PRESIDENT OF TALENT ACQUISITION - CN: HPI Data of Consult Consult date: 09/17/22 Primary Care Provider: DENNIS POZO MD Consult Narrative Narrative: I was consulted on Antoni Rdz who is a 37 year old female presenting with clitoral pain/irritation. Patient gives a history of a recent diagnosis of BV, has been on fluconazole last 3 days with no improvement. No history of trauma to the perineum, perineal or clotoral lesions, no other associated urinary or GI symptoms. UA is positive for leukocyte esterase cc:: CC: OB PMFSH Past Medical History Medical History Anxiety Depression Surgical History Surgical History S/P bilateral breast reduction Social History Social History Household Members: Other Housing: Apartment Do you presently have visiting nurse or other home services: No Alcohol intake: current Alcohol intake frequency: holidays/special occasions only Alcohol type: wine Patient Tobacco Use Status: Current everyday Tobacco user Tobacco use type: Cigarette Smoked in Last 30 Days: No e-Cigarette/Vaping Use: Never Used Second Hand Smoke Exposure: Yes Use of substances other than those prescribed or required for medical reasons: Yes Substance Use Type: Marijuana Substance Use Frequency: Weekly Advance Directives: No Advance Directives Information Provided: Yes service: No Sexual orientation: Straight/Heterosexual Meds Allergies Allergy/AdvReac Type Severity Reaction Status Date / Time amoxicillin [AMOXICILLIN] Allergy Unknown HIVES Verified 09/16/22 22:36 Home Medications Medication Instructions Recorded Confirmed Last Taken Type bupropion HCl 300 mg 24 hr tablet, 300 mg PO DAILY 04/08/21 04/08/21 Unknown History extended release clonazepam 1 mg tablet 1 mg PO TID 04/08/21 04/08/21 Unknown History duloxetine 60 mg capsule,delayed 120 mg PO DAILY 04/08/21 04/08/21 Unknown History release propranolol 10 mg tablet 10 mg PO TID 04/08/21 04/08/21 Unknown History VICE PRESIDENT OF TALENT ACQUISITION Physical Exam Vitals Vital signs: Temp Pulse Resp BP Pulse Ox O2 Del Method 98.3 F 65 16 121/63 97 09/17/22 06:17 09/17/22 06:17 09/17/22 06:17 09/17/22 06:17 09/17/22 06:17 09/17/22 06:17 BMI result Body Mass Index 30.4 Additional Comments: Reported by Dr. Euceda as the following no vulvar or clitoral lesion, erythema around the clitoral area, no ulcers or lesions on the perineum VICE PRESIDENT OF TALENT ACQUISITION - Results Labs Labs: Urine 09/17/22 09/17/22 Range/Units 06:57 06:57 Urine Color Dark Yellow Urine Appearance Cloudy Urine pH 5.5 (5.0-9.0) Ur Specific [place] >= 1.030 H (1.005-1.025) Urine Protein 30 (1+) H (Neg-Trace) mg/dL Urine Glucose (UA) Negative (Negative) mg/dL Urine Test NEGATIVE (NEGATIVE) Assessment and Plan (1) Clitoral irritation: Status: Acute Plan Recommended the following to Dr. Euceda: GC/CT, BV panel was Trichomonas. Send urine for culture and Treat for UTI. Discontinue fluconazole p.o. because of its interaction with the other medications. Treat with Terazol 0.8% vaginal cream q.h.s. for 3 days with Lotrisone cream b.i.d. for 5 days to be applied to the affected area. If the patient has symptoms of vaginal discharge with foul odor suggestive of BV, treat with Flagyl 500 mg p.o. b.i.d. for 7 days. Instructions to be given to patient to come back to emergency room in case of worsening of her symptoms, otherwise follow-up with an outpatient with her fit model. I spent a total of 20 minutes reviewing the chart, communicating with the emergency room provider and documenting in the medical record Time Spent With Patient Time: Total time managing care of this patient today ____ minutes.
--- NOTE | 2022-09-17 11:11 | PC.NURSE ---
Patient resting comfortably mother at bedside reports so,e relief from topical lidocaine will CTM
[2022-09-17 12:05] VITALS: BP 140/60; PULSE 82; RESP 18; TEMP 37; O2SAT 98
== END 2022-09-17 12:08 | disposition home or self-care (01) ==
PROVIDERS: Emergency Provider Student in an Organized Health Care Education/Training Program; PCP Internal Medicine
DX: F41.9 Anxiety disorder, unspecified (principal); N90.89 Other specified noninflammatory disorders of vulva and perineum; F17.210 Nicotine dependence, cigarettes, uncomplicated; F12.90 Cannabis use, unspecified, uncomplicated; F33.9 Major depressive disorder, recurrent, unspecified; Z79.899 Other long term (current) drug therapy
CPT/HCPCS: 81001; 81025; 87086; 93005; 99283; 99284